=== PATIENT | male | born 1995 | race Two or more races ===

== ENCOUNTER 2017-07-03 20:58 | Emergency (ER) | payer OTHER ==
[2017-07-03 21:07] VITALS: BP 138/66; BMI 35.4
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
[2017-07-06 19:58] LABS: HEPATITIS A ANTIBODY IGM Negative (Negative)
[2017-07-07 07:29] LABS: HEPATITIS B CORE IGM Negative (Negative); HEPATITIS B SURFACE ANTIGEN Negative (Negative)
== END 2017-07-03 23:33 | disposition home or self-care (01) ==
LOC: ER 20:58
DX: Z77.21 Contact with and (suspected) exposure to potentially hazardous body fluids (principal)
CPT/HCPCS: 36415; 80074; 86701; 99282

== ENCOUNTER 2021-11-19 08:43 | Observation (INO) ==
[2021-11-19 08:47] VITALS: BMI 46.5
[2021-11-19] MEDS ORDERED: ZOFRAN INJ 4 MG VIAL ONE (08:52)
[2021-11-19] MEDS ORDERED: D5 NS 1,000 ML IV 1,000 ML IV ONE ×2 (09:03→09:38)
[2021-11-19] MEDS ORDERED: ZOFRAN INJ 4 MG VIAL IVP ONE (09:03)
[2021-11-19] MEDS ORDERED: NS 1,000 ML IV 1,000 ML ONE (09:11)
[2021-11-19] MEDS ORDERED: DILAUDID INJ ONE (09:11)
[2021-11-19] MEDS ORDERED: NS IRRIG 3000 ML + EPI 1 MG IR ONE (09:21)
[2021-11-19 09:24] LABS: BASOPHILS # (AUTO) 0.1 X10^3/uL (0.0-0.1); BASOPHILS % (AUTO) 0.4 % (0.2-1.0); EOSINOPHILS # (AUTO) 0.1 x10^3/uL (0.0-0.2); EOSINOPHILS % (AUTO) 0.6 % (0.9-2.9); HEMATOCRIT 49.5 % (42.0-54.0); HEMOGLOBIN 17.4 g/dL (13.5-18.0); LYMPHOCYTES # (AUTO) 2.8 X10^3/uL (1.3-2.9); LYMPHOCYTES % (AUTO) 15.8 % (21.0-51.0); MEAN CORPUSCULAR HEMOGLOBIN 29.4 pg (27.0-34.0); MEAN CORPUSCULAR HGB CONC 35.1 g/dL (33.0-35.0); MEAN CORPUSCULAR VOLUME 83.6 fL (80.0-100.0); MEAN PLATELET VOLUME 11.6 fL (7.4-11.0); MONOCYTES # (AUTO) 1.1 x10^3/uL (0.3-0.8); MONOCYTES % (AUTO) 6.1 % (0.0-13.0); NEUTROPHILS # (AUTO) 13.6 x10^3/uL (2.2-4.8); NEUTROPHILS % (AUTO) 77.1 % (42.0-75.0); RED BLOOD COUNT 5.92 X10^6/uL (4.7-6.0); RED CELL DISTRIBUTION WIDTH 13.9 % (11.6-16.5); WHITE BLOOD COUNT 17.6 X10^3/uL (3.6-10.0)
[2021-11-19 09:34] LABS: ALANINE AMINOTRANSFERASE 154 Units/L (12-78); ALKALINE PHOSPHATASE 88 Units/L (46-116); ASPARTATE AMINO TRANSFERASE 56 Units/L (15-37); BLOOD UREA NITROGEN 10 mg/dL (7-18); CALCIUM 8.4 mg/dL (8.5-10.1); CARBON DIOXIDE 26.8 mmol/L (21-32); CHLORIDE 106 mmol/L (98-107); COR NA(FOR HYPERGLY) 140 mmol/L (136-145); CREATININE 0.76 mg/dL (0.70-1.30); SODIUM 139 mmol/L (136-145); eGFR NON BLACK RACES > 60 (>60)
[2021-11-19] MEDS ORDERED: PHENERGAN INJ 25 MG IM ONE ×2 (09:36→09:37)
[2021-11-19] MEDS ORDERED: NS 1,000 ML IV 1,000 ML IV ONE (09:36)
[2021-11-19 09:45] LABS: PLATELET MORPHOLOGY COMMENT NORMAL (NORMAL)
[2021-11-19] MEDS ORDERED: ZOSYN VIAL 3.375 GRAMS IV ONE (10:45)
[2021-11-19] MEDS ORDERED: NS 100 ML IV 100 ML ONE (10:46)
[2021-11-19] MEDS ORDERED: ZOSYN VIAL 3.375 GRAMS 3.375 G in NS 100 ML IV 100 ML IV ONE (11:00)
[2021-11-19] MEDS ORDERED: PEPCID 20 MG VIAL ONE (11:23)
--- NOTE | 2021-11-19 11:44 | CT ---
HISTORYVOMITTING, STOMACH PAINSTUDYABDOMEN/PELVIS W/O CONCOMPARISONNone.TECHNIQUEMultiple axial images of the abdomen and pelvis were obtained from the lung bases to the pubic symphysis without the administration of IV contrast. Dose reduction techniques including Automated Exposure Control (AEC) and adjustment of mA and kV were utilized.FINDINGSLack of contrast limits evaluation.The lung bases are clear. The heart is normal in size. There is borderline diffuse hepatic steatosis. Hounsfield units of the liver measure approximately 41. The spleen, pancreas, adrenal glands, and kidneys have a benign noncontrast appearance. The urinary bladder appears benign. The prostate is normal in size. Negative for diverticulitis. The appendix is thickened measuring 1.6 cm at the tip image 62 series 3. There is mild adjacent fat stranding image 34 series 5. No free air or abscess identified. Non-atherosclerotic normal caliber abdominal aorta. No pathologic adenopathy. No acute osseous abnormality.IMPRESSIONThickened appendix measuring up to 1.6 cm with mild adjacent fat stranding is suspicious for acute uncomplicated appendicitis.Electronically signed by: Dimitry Galindo (Nov 19, 2021 09:55:31)
[2021-11-19] MEDS ORDERED: BRIDION ONE (13:21)
[2021-11-19] MEDS ORDERED: OFIRMEV IV 1000 MG VIAL IV ONE (13:21)
[2021-11-19] MEDS ORDERED: VERSED ONE (13:21)
[2021-11-19] MEDS ORDERED: ZEMURON 100 MG VIAL ONE (13:21)
[2021-11-19] MEDS ORDERED: TORADOL 30 MG VIAL ONE (13:21)
[2021-11-19] MEDS ORDERED: DIPRIVAN VIAL ONE (13:21)
[2021-11-19] MEDS ORDERED: FENTANYL VIAL INJ 100 mcg ONE (13:21)
[2021-11-19] MEDS ORDERED: SUPRANE ONE (14:01)
--- NOTE | 2021-11-19 14:38 | RAD ---
HISTORYFEVER, CHILLS Relevant Clinical InformationSTUDYCHEST, 1 [id number]/07/2022.FINDINGSThe trachea is midline. The cardiac silhouette is unremarkable. There is a shallow respiration which accentuates lung markings. There is some minimal basilar atelectasis. There is effusion. The bony thorax is unremarkable.IMPRESSIONShallow respiration with minimal basilar atelectasis.Electronically signed by: Faisal Vinson (Nov 19, 2021 14:36:26)
[2021-11-19] MEDS ORDERED: REGLAN INJ 10 MG VIAL IVP PRN (15:11)
[2021-11-19] MEDS ORDERED: PHENERGAN INJ 25 MG IM PRN (15:11)
[2021-11-19] MEDS ORDERED: BENADRYL INJ 50 MG VIAL IVP PRN (15:11)
[2021-11-19] MEDS ORDERED: ZOFRAN INJ 4 MG VIAL IVP PRN (15:11)
[2021-11-19] MEDS ORDERED: BARHEMSYS INJ IVP PRN (15:11)
[2021-11-19] MEDS ORDERED: DILAUDID INJ IVP PRN (15:11)
[2021-11-19] MEDS ORDERED: PERCOCET TAB 5/325 MG PO PRN (15:17)
[2021-11-19] MEDS: DILAUDID INJ IVP PRN ×2 (16:15→21:04)
[2021-11-19] MEDS: D5 1/2 NS 1,000 ML 1,000 ML IV SCH (16:15)
[2021-11-19] MEDS: ZOSYN VIAL 3.375 GRAMS 3.375 G in NS 100 ML IV 100 ML IV SCH ×2 (16:16→21:03)
[2021-11-19] MEDS ORDERED: PROVENTIL NEB TX 0.083% 2.5MG/ 3ML NEB PRN (16:27)
[2021-11-20] MEDS: D5 1/2 NS 1,000 ML 1,000 ML IV SCH ×2 (00:19→10:31)
[2021-11-20] MEDS: ZOSYN VIAL 3.375 GRAMS 3.375 G in NS 100 ML IV 100 ML IV SCH (05:27)
[2021-11-20 06:49] LABS: BASOPHILS % (AUTO) 0.2 % (0.2-1.0); EOSINOPHILS # (AUTO) 0.1 x10^3/uL (0.0-0.2); EOSINOPHILS % (AUTO) 1.1 % (0.9-2.9); HEMATOCRIT 41.4 % (42.0-54.0); HEMOGLOBIN 14.3 g/dL (13.5-18.0); LYMPHOCYTES # (AUTO) 3.2 X10^3/uL (1.3-2.9); LYMPHOCYTES % (AUTO) 28.4 % (21.0-51.0); MEAN CORPUSCULAR HEMOGLOBIN 29.2 pg (27.0-34.0); MEAN CORPUSCULAR HGB CONC 34.6 g/dL (33.0-35.0); MEAN CORPUSCULAR VOLUME 84.6 fL (80.0-100.0); MEAN PLATELET VOLUME 11.3 fL (7.4-11.0); MONOCYTES # (AUTO) 1.3 x10^3/uL (0.3-0.8); MONOCYTES % (AUTO) 11.1 % (0.0-13.0); NEUTROPHILS # (AUTO) 6.7 x10^3/uL (2.2-4.8); NEUTROPHILS % (AUTO) 59.2 % (42.0-75.0); RED BLOOD COUNT 4.89 X10^6/uL (4.7-6.0); RED CELL DISTRIBUTION WIDTH 13.7 % (11.6-16.5); WHITE BLOOD COUNT 11.3 X10^3/uL (3.6-10.0)
[2021-11-20 07:37] LABS: GIANT PLATELET FEW; PLATELET MORPHOLOGY COMMENT ABNORMAL (NORMAL)
[2021-11-20 08:05] VITALS: BP 110/56
== END 2021-11-20 11:00 | disposition home or self-care (01) ==
LOC: ER 08:43 → SURG1 13:47 → MED/SURG 13:47
PROVIDERS: ADMIT Surgery; ATTEND Surgery
PROC: APPYLAP (ICD-10-PCS; 2021-11-19 12:45)
DX: R94.31 Abnormal electrocardiogram [ECG] [EKG]; K35.890 Other acute appendicitis without perforation or gangrene; E66.01 Morbid (severe) obesity due to excess calories; Z20.822 Contact with and (suspected) exposure to COVID-19; R10.84 Generalized abdominal pain